=== PATIENT | male | born 1960 | race Caucasian/White ===

== ENCOUNTER 2020-08-17 14:29 | Emergency (ER) | payer BC, OTHER ==
--- NOTE | 2020-08-17 16:09 | CR ---
EXAMINATION: Hand Comp Min 3V Lt SEX: Male AGE: 59 years CLINICAL HISTORY: 59-year-old "crush" middle finger (log splitter). Interpretation: Occult, nondisplaced, "hairline" fracture terminal tuft distal phalanx middle (third) finger left hand (oblique projection). Soft tissue swelling. No foreign bodies. Good bone mineral density. No sign of other fracture/dislocation left hand or wrist. 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
--- NOTE | 2020-08-17 19:02 | EDM.PDOC ---
ED HPI GENERAL MEDICAL PROBLEM - General Chief Complaint: Laceration Stated Complaint: LACERATED FINGER Time Seen by Provider: 08/17/20 19:00 Source of Information: Reports: Patient, RN History Limitations: Reports: No Limitations - History of Present Illness INITIAL COMMENTS - FREE TEXT/NARRATIVE: ED with c/o pain to left 3rd finger following getting caught in log splitter. La ceration to finger tip. left middle finger Pain Score (Numeric/FACES): 6 - Related Data Allergies Allergy/AdvReac Type Severity Reaction Status Date / Time aspirin Allergy Rash Verified 08/17/20 17:49 Sulfa (Sulfonamide Allergy Hives Verified 08/17/20 17:49 Antibiotics) macadamia nuts Allergy Anaphylactic Uncoded 08/17/20 17:49 Shock Home Meds: Home Meds Losartan [Cozaar] 25 mg PO DAILY 03/14/13 [History] Omeprazole [Prilosec] 20 mg PO 03/14/13 [History] Past Medical History - Past Health History Medical/Surgical History: Denies Medical/Surgical History HEENT History: Reports: None Cardiovascular History: Reports: Hypertension Respiratory History: Reports: None Gastrointestinal History: Reports: GERD Genitourinary History: Reports: None Musculoskeletal History: Reports: None Neurological History: Reports: None Psychiatric History: Reports: None Endocrine/Metabolic History: Reports: None Hematologic History: Reports: None Immunologic History: Reports: None Oncologic (Cancer) History: Reports: None Dermatologic History: Reports: None - Infectious Disease History Infectious Disease History: Reports: None - Past Surgical History HEENT Surgical History: Reports: None Cardiovascular Surgical History: Reports: None Respiratory Surgical History: Reports: None GI Surgical History: Reports: None Neurological Surgical History: Reports: None Social & Family History - Family History Family Medical History: No Pertinent Family History - Tobacco Use Tobacco Use Status *Q: Never Tobacco User Second Hand Smoke Exposure: No - Caffeine Use Caffeine Use: Reports: Soda - Recreational Drug Use Recreational Drug Use: No ED ROS GENERAL - Review of Systems Review Of Systems: Comprehensive ROS is negative, except as noted in HPI. ED EXAM, SKIN/RASH Exam: See Below Exam Limited By: No Limitations General Appearance: Alert, No Apparent Distress Eye Exam: Bilateral Eye: EOMI Ears: Normal External Exam Nose: Normal Inspection Throat/Mouth: Normal Inspection Head: Atraumatic, Normocephalic Neck: Normal Inspection Respiratory/Chest: No Respiratory Distress, Normal Breath Sounds Cardiovascular: Regular Rate, Rhythm Extremities: Other (left 3rd finger DIP swollen CMS intact, medial laceration ) Neurological: Alert, Oriented Psychiatric: Normal Affect, Normal Mood Skin: Warm, Ecchymosis (left 3rd finger distal fat pad), Wound/Incision (Left 3rd finger laceration 1 cm superficial , nail bed intact slight lmedial subungal hematoma) Location, Skin: Upper Extremity, Right ED SKIN PROCEDURES - Laceration/Wound Repair Left Medial Distal Digit - 3rd (Middle) Appearance: Superficial Distal NVT: Neuro & Vascular Intact Anesthetic Type: Local Local Anesthesia - Lidocaine (Xylocaine): 1% Plain Local Anesthetic Volume: 1cc Skin Prep: Chlorhexidine (Hibiciens), Saline Closed with: Sutures Lac/Wound length In cm: 1 Suture Size: 4-0 # of Sutures: 1 Suture Type: Nylon, Interrupted Sterile Dressing Applied: Nurse Tetanus Status Addressed: Yes Complications: No Course - Vital Signs Last Recorded V/S: Last Vital Signs Temp 98.5 F 08/17/20 14:52 Pulse 78 08/17/20 14:52 Resp 18 08/17/20 14:52 BP 157/88 H 08/17/20 14:52 Pulse Ox 100 08/17/20 14:52 - Orders/Labs/Meds Meds: Medications Discontinued Medications Generic Name Dose Route Start Last Admin Trade Name Hanna PRN Reason Stop Dose Admin Bacitracin 1 dose 08/17/20 19:03 08/17/20 19:24 Bacitracin Oint 1 Gm U/D Packet TOP 08/17/20 19:04 1 dose ONETIME ONE Administration Cephalexin 500 mg 08/17/20 19:55 08/17/20 20:00 Cephalexin 500 Mg Cap PO 08/17/20 19:56 500 mg ONETIME ONE Administration Lidocaine HCl 30 ml 08/17/20 19:03 08/17/20 19:23 Lidocaine 1% 30 Ml Sdv INJECT 08/17/20 19:04 30 ml ONETIME ONE Administration Departure - Departure Time of Disposition: 19:57 Disposition: Home, Self-Care 01 Condition: Good Clinical Impression: Crush injury Laceration of finger Qualifiers: Encounter type: initial encounter Finger: middle finger Damage to nail status: without damage Foreign body presence: without foreign body Laterality: left Qualified Code(s): S61.213A - Laceration without foreign body of left middle finger without damage to nail, initial encounter - Discharge Information *PRESCRIPTION DRUG MONITORING PROGRAM REVIEWED*: No *COPY OF PRESCRIPTION DRUG MONITORING REPORT IN PATIENT ELLIOTT: No Instructions: Laceration Care, Adult, [id number] Referrals: Francisco Kumar MD [Primary Care Provider] - Forms: ED Department Discharge Additional Instructions: suture out 7-10 days dressing change twice daily wash soap and water cover with antibiotic ointment and dressing elevate tylenol 500mg every 4 hours as needed for discomfort splint for comfort recheck clinic on Friday, sooner if redness or drainage Sepsis Event Note (ED) - Evaluation Sepsis Screening Result: No Definite Risk
[2020-08-17] MEDS ORDERED: Bacitracin Oint 1 GM U/D Packet TOP ONE (19:03)
[2020-08-17] MEDS ORDERED: Lidocaine 1% 30 ML SDV INJECT ONE (19:03)
[2020-08-17] MEDS ORDERED: Cephalexin 500 MG Cap PO ONE (19:55)
== END 2020-08-17 20:10 | disposition home or self-care (01) ==
LOC: DL.ED 14:29
DX: S67.193A Crushing injury of left middle finger, initial encounter (principal); S61.213A Laceration without foreign body of left middle finger without damage to nail, initial encounter; I10 Essential (primary) hypertension; K21.9 Gastro-esophageal reflux disease without esophagitis; Z88.8 Allergy status to other drugs, medicaments and biological substances; Z88.2 Allergy status to sulfonamides; Z79.899 Other long term (current) drug therapy; Z91.010 Allergy to peanuts; W23.0XXA Caught, crushed, jammed, or pinched between moving objects, initial encounter
CPT/HCPCS: 12001; 73130; 99282; 99283; A9270